=== PATIENT | male | born 1965 | race Caucasian/White ===

== ENCOUNTER 2024-02-13 14:41 | Emergency (ER) | payer MEDICARE, OTHER, MEDICAID ==
[~2024-02-13] VITALS: Ht 172.7 cm; Wt 108.0 kg
[2024-02-13] MEDS ORDERED: ALBUTEROL SULFATE 0.5% 2.5 MG/0.5 ML VIAL INH ONE (14:45)
[2024-02-13] MEDS ORDERED: methylPREDNISolone SOD SUCC 125 MG/2 ML VIAL IV ONE (14:45)
[2024-02-13 14:52] LABS: HEMATOCRIT 44.2 % (35.0-50.0); HEMOGLOBIN 14.5 g/dL (12.0-18.0); MCHC 32.7 g/dl (30-36); MCV 91.8 fl (81-99); PLATELET COUNT 242 K/uL (140-440); RBC 4.82 M/ul (4.3-5.7); RDW 13.7 (10.5-15.0)
[2024-02-13 15:08] LABS: BANDS, MANUAL DIFF 2; BASOPHILS, MANUAL DIFF 1; LYMPHOCYTES, MANUAL DIFF 13; MONOCYTES, MANUAL DIFF 11; NEUTROPHILS, MANUAL DIFF 73
[2024-02-13 15:13] LABS: ALBUMIN 3.7 g/dL (3.4-5.0); ALBUMIN/GLOBULIN RATIO 0.86 (1.1-2.4); BILIRUBIN, TOTAL 0.5 ng/dL (0.2-1.0); BUN/CREATININE RATIO 27.83 (6.0-28.6); CREATININE, SERUM 0.97 mg/dL (0.70-1.30); POTASSIUM 4.1 mmol/L (3.5-5.1)
[2024-02-13 15:14] LABS: ANION GAP 4.1 (7-21)
[2024-02-13 15:53] LABS: INFLUENZA B NAA NEGATIVE (NEGATIVE); RESPIRATORY SYNCYTIAL VIR NAA NEGATIVE (NEGATIVE)
[2024-02-13 15:59] LABS: BASE EXCESS, BLOOD GAS 17.3 mmol/L (-2-2); HCO3, BLOOD GAS 50.4 mmol/L (22-26); O2 SATURATION, BLOOD GAS 86.2 % (95.0-100.0); PH, BLOOD GAS 7.26 (7.35-7.45); PO2, BLOOD GAS 56 mmHg (80-100); TOTAL CO2, BLOOD GAS 53.8
[2024-02-13 16:00] LABS: OXYGEN RECEIVED, BLOOD GAS 40%
[2024-02-13] MEDS ORDERED: ALBUTEROL/IPRATROPIUM 3 ML NEB ONE (16:06)
[2024-02-13] MEDS ORDERED: ALBUTEROL/IPRATROPIUM 3 ML NEB INH ONE (16:30)
[2024-02-13 17:06] LABS: BASE EXCESS, BLOOD GAS 17.3 mmol/L (-2-2); PH, BLOOD GAS 7.23 (7.35-7.45); PO2, BLOOD GAS 83 mmHg (80-100); TOTAL CO2, BLOOD GAS 54.6
[2024-02-13 17:07] LABS: OXYGEN RECEIVED, BLOOD GAS 50%
[2024-02-13] MEDS ORDERED: KETAMINE HCL IN NACL, ISO-OSM 100 ML IV ONE (17:26)
[2024-02-13] MEDS ORDERED: ROCURONIUM BROMIDE 50 MG/5 ML SYR IV ONE (17:30)
[2024-02-13] MEDS ORDERED: ETOMIDATE 40 MG/20 ML VIAL IV ONE (17:30)
[2024-02-13] MEDS ORDERED: KETAMINE HCL IN NACL, ISO-OSM 100 ML IV SCH (17:30)
[2024-02-13] MEDS ORDERED: ALBUTEROL SULFATE 0.083% 3 ML VIAL ONE (17:41)
[2024-02-13] MEDS ORDERED: ALBUTEROL SULFATE 0.083% 3 ML VIAL INH ONE (18:00)
[2024-02-13 18:25] LABS: BASE EXCESS, BLOOD GAS 17.2 mmol/L (-2-2); HCO3, BLOOD GAS 47.3 mmol/L (22-26); O2 SATURATION, BLOOD GAS 91.8 % (95.0-100.0); PCO2, BLOOD GAS 80.6 mmHg (35-45); PH, BLOOD GAS 7.37 (7.35-7.45); TOTAL CO2, BLOOD GAS 49.9
[2024-02-13] MEDS ORDERED: AZITHROMYCIN 500 MG in DEXTROSE 5% 250 ML IV SCH (19:08)
[2024-02-13] MEDS ORDERED: FENTANYL CITRATE-0.9 % NACL/PF 100 ML IV SCH (19:15)
[2024-02-13] MEDS ORDERED: AZITHROMYCIN 500 MG VIAL ONE (19:17)
[2024-02-13] MEDS ORDERED: fentaNYL citrate 100 MCG/2 ML VIAL IV PRN (19:30)
[2024-02-13] MEDS ORDERED: NOREPINEPHRINE BITARTRATE 250 ML IV SCH (20:30)
[2024-02-13 21:37] VITALS: BP 81/55
--- NOTE | 2024-02-14 18:55 | EKG ---
[facility] [address] [place] [address] Signed Normal sinus rhythm with sinus arrhythmia Normal ECG No previous ECGs available Confirmed by Estela Lomeli MD ([id number]) on 02/14/2024 6:54:46 PM Electronically Signed By: ESTELA LOMELI MD 02/14/241854 PATIENT NAME: JOSHUA HAWKINS Electrocardiogram DATE OF : 63 PHYSICIAN: ESTELA LOMELI MD REPORT #: [id number] REPORT IS CONFIDENTIAL AND NOT TO BE RELEASED WITHOUT AUTHORIZATION
== END 2024-02-13 21:00 | disposition short-term general hospital (02) ==
LOC: ED 14:41
PROVIDERS: Emergency Medicine
DX: J44.1 Chronic obstructive pulmonary disease with (acute) exacerbation (principal); Z91.013 Allergy to seafood; Z11.52 Encounter for screening for COVID-19
CPT/HCPCS: 31500; 36415; 36600; 51702; 71045; 80053; 82803; 83880; 84484; 85025; 87502; 93005; 93010; 94644; 94645; 94799; 99285-25; J0456; J2919; J3010; J3490; J7060; U0002